=== PATIENT | female | born 1990 | race African-American/Black ===

== ENCOUNTER 2017-11-16 20:53 | Emergency (ER) | payer MEDICAID ==
[~2017-11-16] VITALS: Ht 162.6 cm; Wt 55.0 kg
[2017-11-16 23:24] VITALS: BP 121/88
== END 2017-11-16 23:29 | disposition home or self-care (01) ==
LOC: ER 20:53
DX: F31.9 Bipolar disorder, unspecified (principal); F20.9 Schizophrenia, unspecified
CPT/HCPCS: 99284